=== PATIENT | male | born 2005 | race Two or more races ===

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

== ENCOUNTER 2024-05-16 02:32 | Emergency (ER) | payer OTHER ==
[~2024-05-16] VITALS: Ht 172.7 cm; Wt 70.3 kg
[~2024-05-16 02:32] MED LIST changes: +PEPCID AC20 MG PO
[2024-05-16 04:24] LABS: HEMATOCRIT 44.6 % (39.0-48.0); HEMOGLOBIN 15.7 g/dL (13-16.00); MEAN CELL VOLUME 83.6 fL (80.0-100.00); MEAN CORPUSCULAR HEMOGLOBIN 29.4 pg (27.00-32.0); MEAN CORPUSCULAR HGB CONC 35.2 g/dl (32.0-36.0); PLATELET COUNT 228 K/uL (150-450); RED BLOOD COUNT 5.34 M/uL (4.00-6.00); RED CELL DISTRIBUTION WIDTH 13.1 % (11.5-14.5)
[2024-05-16 04:53] LABS: CALCIUM 9.3 mg/dL (8.5-10.1); CREATININE SERUM 0.85 mg/dL (0.70-1.30); GFR 116.12; POTASSIUM 4.03 mEq/L (3.5-5.1)
== END 2024-05-16 06:05 | disposition home or self-care (01) ==
LOC: ER 02:34 → EMR PED 02:41 → ER 02:41 → EMR PED 06:05
DX: R53.81 Other malaise (principal); J10.1 Influenza due to other identified influenza virus with other respiratory manifestations; Z20.822 Contact with and (suspected) exposure to COVID-19

== ENCOUNTER 2024-06-26 12:22 | Emergency (ER) | payer OTHER ==
[~2024-06-26] VITALS: Ht 170.2 cm; Wt 65.8 kg
[2024-06-26 12:49] VITALS: BP 124/73; O2SAT 99
[2024-06-26] MEDS ORDERED: FAMOTIDINE/PF 20 MG/2 ML VIAL IV STA (13:19)
[2024-06-26] MEDS ORDERED: LACTOBACILLUS ACIDOPHILUS 1 CAP CAP PO STA (13:19)
[2024-06-26] MEDS ORDERED: 0.9 % SODIUM CHLORIDE 1,000 ML IV SCH ×2 (13:30)
[2024-06-26 15:23] LABS: HEMATOCRIT 48.1 % (39.0-48.0); HEMOGLOBIN 16.4 g/dL (13-16.00); MEAN CELL VOLUME 84.9 fL (80.0-100.00); MEAN CORPUSCULAR HEMOGLOBIN 28.9 pg (27.00-32.0); MEAN CORPUSCULAR HGB CONC 34.1 g/dl (32.0-36.0); PLATELET COUNT 216 K/uL (150-450); RED BLOOD COUNT 5.67 M/uL (4.00-6.00); RED CELL DISTRIBUTION WIDTH 12.8 % (11.5-14.5)
[2024-06-26 15:47] LABS: URINE APPEARANCE Clear; URINE BILIRRUBIN Negative (NEGATIVE); URINE BLOOD Negative; URINE COLOR Dark Yellow; URINE GLUCOSE Negative (NEGATIVE); URINE KETONE Trace (NEGATIVE); URINE LEUKOCYTE Negative; URINE NITRATE Negative; URINE PROTEIN 30 (NEGATIVE); URINE UROBILINOGEN 0.2 E.U./dl
[2024-06-26 15:51] LABS: URINE BACTERIA 17.1 uL (0.0-1933); URINE RBC 6.9 uL (0.0-20.8); URINE WBC 8.8 uL (0.0-23.2)
[2024-06-26 15:57] LABS: ALBUMIN 3.8 gm/dL (3.4-5.0); BILIRUBIN TOTAL 0.43 mg/dL (0.3-1.2); CALCIUM 8.7 mg/dL (8.5-10.1); CREATININE SERUM 0.74 mg/dL (0.70-1.30); GFR 136.25; GLOBULINA 3.4 G/DL (2.4-3.5); POTASSIUM 3.96 mEq/L (3.5-5.1); TOTAL PROTEIN 7.2 gm/dL (6.4-8.2)
[2024-06-26 16:39] LABS: URINE CAST 0.29 uL (0.0-1.40)
[2024-06-26] MEDS ORDERED: PEPCID AC20 MG PO (17:43)
[2024-06-26] MEDS ORDERED: INTEGRA PLUS C1 EACH PO (17:43)
[2024-06-26] MEDS ORDERED: INTESTINEX680 M1 PO (17:50)
== END 2024-06-26 18:09 | disposition home or self-care (01) ==
LOC: EMR PED 12:22
PROVIDERS: Pediatrics
DX: K52.89 Other specified noninfective gastroenteritis and colitis (principal); E86.0 Dehydration; R63.0 Anorexia; Z20.822 Contact with and (suspected) exposure to COVID-19